=== PATIENT | female | born 1945 | race African-American/Black ===

== ENCOUNTER 2023-10-15 06:32 | Day surgery (SDC) | payer OTHER, SELFPAY ==
[2023-10-15 12:49] VITALS: BP 148/92
[2023-10-15 12:54] VITALS: BMI 41.3
[2023-10-15 12:55] VITALS: BMI 41.3
[2023-10-15 15:54] VITALS: BP 117/80
[2023-10-15 16:01] VITALS: BP 122/84
[2023-10-15 16:16] VITALS: BP 130/84
== END 2023-10-15 16:33 | disposition home or self-care (01) ==
LOC: GI 06:32
PROVIDERS: ATTENDING PHYSICIAN Internal Medicine Gastroenterology
DX: K64.0 First degree hemorrhoids (principal); D12.2 Benign neoplasm of ascending colon; D12.6 Benign neoplasm of colon, unspecified
CPT/HCPCS: 45390; 88305